=== PATIENT | male | born 1955 | race Hispanic/Latino ===

== ENCOUNTER 2023-06-28 13:32 | Emergency (ER) | payer MEDICARE ==
[~2023-06-28] VITALS: Ht 170.2 cm; Wt 54.4 kg
[2023-06-28 14:09] LABS: BASOPHILS # (AUTO) 0.08 K/uL (0.00-0.20); BASOPHILS % (AUTO) 0.8 % (0.0-5.0); EOSINOPHILS # (AUTO) 0.43 K/uL (0.00-0.70); EOSINOPHILS % (AUTO) 4.5 % (0.0-8.0); HEMATOCRIT 42.3 % (42-54); IMMATURE GRANULOCYTE ABSOLUTE 0.02 K/uL (0-1); LYMPHOCYTES # (AUTO) 2.3 K/uL (1.0-4.8); LYMPHOCYTES % (AUTO) 23.9 % (21.0-51.0); MEAN CORPUSCULAR HEMOGLOBIN 29.6 pg (27.0-33.0); MONOCYTES # (AUTO) 0.7 K/uL (0.1-1.0); MONOCYTES % (AUTO) 7.8 % (3.0-13.0); NEUTROPHILS % (AUTO) 62.8 % (40.0-77.0); PLATELET COUNT (AUTO) 335 K/uL (130-400); RED BLOOD CELL COUNT(AUTO) 4.86 MIL/uL (4.50-6.20); WHITE BLOOD COUNT (AUTO) 9.5 K/uL (4.8-10.8)
[2023-06-28 14:31] LABS: CREATININE 0.6 mg/dL (0.5-1.3)
[2023-06-28 14:35] LABS: ALBUMIN 3.7 g/dL (3.5-5.0); BILIRUBIN,TOTAL 0.4 mg/dL (0.2-1.0); TOTAL PROTEIN, SERUM 7.9 g/dL (6.0-8.3)
[2023-06-28 14:56] LABS: RAPID GROUP A STREP negative (NEGATIVE)
[2023-06-28 15:06] LABS: COVID19 (SARS ANTIGEN RAPID) PRESUMPTIVE NEGATIVE (NEGATIVE)
[2023-06-28] MEDS: LACTATED RINGERS 1000ML 1,000 ML IV ONE (15:29)
[2023-06-28] MEDS: KETOROLAC 30MG VIAL (30MG/ML) IVP ONE (15:29)
[2023-06-28] MEDS ORDERED: ACET-66 PO (17:07)
[2023-06-28 17:23] VITALS: BP 142/76; PULSE 54; RESP 16; O2SAT 98
== END 2023-06-28 17:37 | disposition home or self-care (01) ==
LOC: EDH 13:32
DX: N20.0 Calculus of kidney (principal); Z86.73 Personal history of transient ischemic attack (TIA), and cerebral infarction without residual deficits; Z20.822 Contact with and (suspected) exposure to COVID-19
CPT/HCPCS: 99285; 74176; 96374; 87426; 80053; 85025; 87880; 36415; J7120; J1885

== ENCOUNTER 2023-07-14 12:49 | Emergency (ER) | payer MEDICARE ==
[~2023-07-14] VITALS: Ht 170.2 cm; Wt 59.0 kg
[~2023-07-14 12:49] MED LIST: ACET-66 PO
[2023-07-14 13:18] LABS: RAPID GROUP A STREP negative (NEGATIVE)
[2023-07-14 13:23] LABS: SARS-CoV-2, RNA, NAAT NEGATIVE SARS CoV-2 (NEGATIVE)
[2023-07-14 13:28] LABS: INFLUENZA TYPE A Negative For Type A (NEGATIVE); INFLUENZA TYPE B Negative For Type B (NEGATIVE)
[2023-07-14 13:40] LABS: BASOPHILS # (AUTO) 0.07 K/uL (0.00-0.20); BASOPHILS % (AUTO) 0.7 % (0.0-5.0); EOSINOPHILS # (AUTO) 0.29 K/uL (0.00-0.70); EOSINOPHILS % (AUTO) 2.9 % (0.0-8.0); HEMATOCRIT 41.9 % (42-54); IMMATURE GRANULOCYTE ABSOLUTE 0.03 K/uL (0-1); LYMPHOCYTES # (AUTO) 1.7 K/uL (1.0-4.8); MEAN CORPUSCULAR HEMOGLOBIN 29.7 pg (27.0-33.0); MEAN CORPUSCULAR HGB CONC 33.7 g/dL (32.0-36.0); MEAN CORPUSCULAR VOLUME 88.2 fL (79-99); MONOCYTES # (AUTO) 0.9 K/uL (0.1-1.0); MONOCYTES % (AUTO) 8.5 % (3.0-13.0); NEUTROPHILS % (AUTO) 70.6 % (40.0-77.0); PLATELET COUNT (AUTO) 336 K/uL (130-400); RED BLOOD CELL COUNT(AUTO) 4.75 MIL/uL (4.50-6.20); RED CELL DISTRIBUTION WIDTH 13.7 % (11.0-15.5)
[2023-07-14 13:51] LABS: CREATININE 0.7 mg/dL (0.5-1.3); POTASSIUM 3.8 mmol/L (3.5-5.1)
[2023-07-14 13:56] LABS: ALBUMIN 3.6 g/dL (3.5-5.0); BILIRUBIN,TOTAL 0.8 mg/dL (0.2-1.0); TOTAL PROTEIN, SERUM 7.8 g/dL (6.0-8.3)
[2023-07-14 15:30] LABS: AMYLASE 47 U/L (25-115)
[2023-07-14] MEDS: 0.9%NACL 1000ML 1,000 ML IV SCH (15:51)
[2023-07-14] MEDS: METOCLOPRAMIDE 10 MG/2 ML VIAL IVP ONE (15:51)
[2023-07-14] MEDS: HYDRALAZINE 20MG/ML VIAL IV ONE (15:51)
[2023-07-14] MEDS: KETOROLAC 15MG/ML VIAL (15MG/ML) IV ONE (15:51)
[2023-07-14] MEDS: FAMOTIDINE 20MG VIAL IV ONE (15:51)
[2023-07-14 16:19] VITALS: BP 128/65; PULSE 78; RESP 18; O2SAT 98
[2023-07-14 18:23] LABS: APPEARANCE,URINE CLEAR (CLEAR); BILIRUBIN,URINE NEGATIVE (NEGATIVE); COLOR,URINE YELLOW (YELLOW); GLUCOSE, URINE (UA) NEGATIVE (NEGATIVE); KETONES,URINE NEGATIVE (NEGATIVE); LEUKOCYTE ESTERASE ,URINE NEGATIVE Leu/uL (NEGATIVE); NITRATE,URINE NEGATIVE (NEGATIVE); OCCULT BLOOD,URINE SMALL (NEGATIVE); PH,URINE 6.5 (5.0-8.0); PROTEIN,URINE 50 mg/dL (NEGATIVE)
[2023-07-14 18:29] LABS: ADD UA MICROSCOPIC YES
[2023-07-14 18:32] LABS: BACTERIA,URINE RARE /HPF (None Seen); MUCUS,URINE RARE LPF (None Seen); RBC,URINE 26-50 /HPF (0-1); SQUAMOUS EPITHELIAL CELL,UR RARE /HPF (0-2)
== END 2023-07-14 19:13 | disposition home or self-care (01) ==
LOC: EDH 12:49
DX: N20.0 Calculus of kidney (principal); Z20.822 Contact with and (suspected) exposure to COVID-19; Z98.890 Other specified postprocedural states; Z87.442 Personal history of urinary calculi; Z86.73 Personal history of transient ischemic attack (TIA), and cerebral infarction without residual deficits
CPT/HCPCS: 99284; 96374; 96375 ×2; 87635; 82150; 80053; 83690; 85025; 87088; 87880; 87804 ×2; 81001; 36415; J3490; J7030; J0360; J2765; J1885

== ENCOUNTER 2023-08-22 10:30 | Emergency (ER) | payer MEDICARE, OTHER ==
[~2023-08-22] VITALS: Ht 167.6 cm; Wt 54.4 kg
[2023-08-22 10:54] LABS: HEMATOCRIT 39.3 % (42-54); MEAN CORPUSCULAR HGB CONC 33.1 g/dL (32.0-36.0); MEAN CORPUSCULAR VOLUME 87.5 fL (79-99); PLATELET COUNT (AUTO) 362 K/uL (130-400); RED BLOOD CELL COUNT(AUTO) 4.49 MIL/uL (4.50-6.20); WHITE BLOOD COUNT (AUTO) 9.1 K/uL (4.8-10.8)
[2023-08-22 11:07] LABS: CREATININE 0.7 mg/dL (0.5-1.3); POTASSIUM 3.4 mmol/L (3.5-5.1)
[2023-08-22 11:12] LABS: ALBUMIN 3.6 g/dL (3.5-5.0); BILIRUBIN,DIRECT 0.2 mg/dL (0.0-0.3); BILIRUBIN,TOTAL 0.6 mg/dL (0.2-1.0); TOTAL PROTEIN, SERUM 7.8 g/dL (6.0-8.3)
[2023-08-22 11:29] LABS: B-TYPE NATRIURETIC PEPTIDE 28 pg/mL (0-100)
[2023-08-22 12:16] LABS: EOSINOPHILS % (MANUAL) 4 % (1-6); LYMPHOCYTES % (MANUAL) 14 % (22-44); MAN.DIFF COMMENT-IMPRESSION MANUAL DIFFERENTIAL; MONOCYTES % (MANUAL) 10 % (2-9); PLATELET MORPHOLOGY COMMENT ADEQUATE; SEGMENTED NEUTROPHILS % 72 % (40-70); TOTAL CELLS COUNTED 100
[2023-08-22] MEDS: CEFTRIAXONE 1G VIAL IVPB ONE (12:35)
[2023-08-22 12:49] VITALS: PULSE 62; RESP 18
[2023-08-22] MEDS: ALBUTEROL 0.083% 2.5 MG/3 ML INH IH ONE (12:49)
[2023-08-22 13:30] LABS: COVID19 (SARS ANTIGEN RAPID) PRESUMPTIVE NEGATIVE (NEGATIVE)
[2023-08-22 13:35] LABS: INFLUENZA TYPE A NEGATIVE FOR TYPE A (NEG)
[2023-08-22 13:36] LABS: INFLUENZA TYPE B NEGATIVE FOR TYPE B (NEG)
[2023-08-22] MEDS ORDERED: PRED20TA3 PO (16:24)
[2023-08-22] MEDS ORDERED: AZIT250T9 PO (16:24)
[2023-08-22 17:02] VITALS: BP 131/73; PULSE 54; RESP 18; O2SAT 99
== END 2023-08-22 17:03 | disposition home or self-care (01) ==
LOC: EDH 10:30
DX: J20.9 Acute bronchitis, unspecified (principal); J06.9 Acute upper respiratory infection, unspecified; Z87.442 Personal history of urinary calculi
CPT/HCPCS: 99285; 96365; 71045; 87426; 80076; 84484; 80048; 83880; 85025; 87804 ×2; 36415; 93005; 94640; J0696

== ENCOUNTER 2023-11-16 12:09 | Observation (INO) | payer OTHER ==
[~2023-11-16] VITALS: Ht 170.2 cm; Wt 43.1 kg
[~2023-11-16 12:09] MED LIST changes: +AZIT250T9 PO; +PRED20TA3 PO
[2023-11-16] MEDS: SOLU-MEDROL 125MG VIAL IVP ONE (12:23)
[2023-11-16 12:25] VITALS: PULSE 71; RESP 20
[2023-11-16 12:25] LABS: BASOPHILS # (AUTO) 0.01 K/uL (0.00-0.20); BASOPHILS % (AUTO) 0.1 % (0.0-5.0); EOSINOPHILS # (AUTO) 0.18 K/uL (0.00-0.70); EOSINOPHILS % (AUTO) 1.5 % (0.0-8.0); HEMATOCRIT 45.3 % (42-54); IMMATURE GRANULOCYTE ABSOLUTE 0.06 K/uL (0-1); LYMPHOCYTES # (AUTO) 2.4 K/uL (1.0-4.8); LYMPHOCYTES % (AUTO) 20.3 % (21.0-51.0); MEAN CORPUSCULAR HGB CONC 32.5 g/dL (32.0-36.0); MEAN CORPUSCULAR VOLUME 89.3 fL (79-99); MONOCYTES # (AUTO) 1.4 K/uL (0.1-1.0); MONOCYTES % (AUTO) 11.5 % (3.0-13.0); NEUTROPHILS % (AUTO) 66.1 % (40.0-77.0); PLATELET COUNT (AUTO) 398 K/uL (130-400); RED BLOOD CELL COUNT(AUTO) 5.07 MIL/uL (4.50-6.20)
[2023-11-16] MEDS: ALBUTEROL 0.083% 2.5 MG/3 ML INH IH ONE (12:25)
[2023-11-16 12:38] LABS: CREATININE 0.6 mg/dL (0.5-1.3); POTASSIUM 3.7 mmol/L (3.5-5.1)
[2023-11-16 12:42] LABS: ALBUMIN 3.1 g/dL (3.5-5.0); BILIRUBIN,TOTAL 0.7 mg/dL (0.2-1.0); MAGNESIUM 2.1 mg/dL (1.80-2.40); TOTAL PROTEIN, SERUM 7.3 g/dL (6.0-8.3)
[2023-11-16 12:57] LABS: ABG BASE EXCESS 1.4 mmol/L (-2.0-3.0); ABG HCO3 24.7 mmol/L (21.0-28.0); ABG OXYGEN SATURATION 97.3 % (95.0-99.0); ABG PCO2 36 mmHg (35-48); ABG PH 7.461 (7.35-7.450); VENT MODE, BG RA (ROOM AIR)
[2023-11-16 13:28] LABS: B-TYPE NATRIURETIC PEPTIDE 1230 pg/mL (0-100)
[2023-11-16] MEDS ORDERED: FAMO20TA8 PO (14:00)
[2023-11-16] MEDS ORDERED: AMLO-257 PO (14:00)
[2023-11-16] MEDS ORDERED: TAMS-1 PO (14:00)
[2023-11-16] MEDS ORDERED: ROSU20TA73 PO (14:01)
[2023-11-16] MEDS: FUROSEMIDE 20MG VIAL IV ONE (14:51)
[2023-11-16] MEDS: cefTRIAXone 1G VIAL IVPB ONE (14:52)
[2023-11-16] MEDS ORDERED: IpraTROPium/alBUTERol SULFATE 3 ML SOLUTION IH PRN (15:00)
[2023-11-16] MEDS: AZITHROMYCIN 500MG+NS 250ML 250 ML IVPB STA (15:11)
[2023-11-16 15:28] LABS: BASOPHILS # (AUTO) 0.01 K/uL (0.00-0.20); BASOPHILS % (AUTO) 0.1 % (0.0-5.0); EOSINOPHILS # (AUTO) 0.02 K/uL (0.00-0.70); EOSINOPHILS % (AUTO) 0.2 % (0.0-8.0); IMMATURE GRANULOCYTE ABSOLUTE 0.06 K/uL (0-1); LYMPHOCYTES # (AUTO) 0.6 K/uL (1.0-4.8); LYMPHOCYTES % (AUTO) 4.9 % (21.0-51.0); MEAN CORPUSCULAR HEMOGLOBIN 29.1 pg (27.0-33.0); MEAN CORPUSCULAR HGB CONC 32.9 g/dL (32.0-36.0); MEAN CORPUSCULAR VOLUME 88.6 fL (79-99); MONOCYTES # (AUTO) 0.2 K/uL (0.1-1.0); MONOCYTES % (AUTO) 1.8 % (3.0-13.0); NEUTROPHILS # (AUTO) 11.8 K/uL (1.8-7.7); NEUTROPHILS % (AUTO) 92.5 % (40.0-77.0); PLATELET COUNT (AUTO) 391 K/uL (130-400); RED BLOOD CELL COUNT(AUTO) 5.08 MIL/uL (4.50-6.20); RED CELL DISTRIBUTION WIDTH 15.9 % (11.0-15.5); WHITE BLOOD COUNT (AUTO) 12.7 K/uL (4.8-10.8)
[2023-11-16 15:41] LABS: CREATININE 0.6 mg/dL (0.5-1.3); POTASSIUM 3.6 mmol/L (3.5-5.1)
[2023-11-16 15:46] LABS: ALBUMIN 3.2 g/dL (3.5-5.0); BILIRUBIN,TOTAL 0.7 mg/dL (0.2-1.0); TOTAL PROTEIN, SERUM 7.6 g/dL (6.0-8.3)
[2023-11-16] MEDS: acetaMINOPHEN 325 MG TAB PO PRN (18:22)
[2023-11-16 18:55] VITALS: PULSE 91; RESP 18
[2023-11-16] MEDS: IpraTROPium/alBUTERol SULFATE 3 ML SOLUTION IH SCH (18:55)
[2023-11-17] VITALS (17 sets, daily range): BP systolic 114–148; BP diastolic 58–86; PULSE 56–97; RESP 18–21; O2SAT 97–99
[2023-11-17] MEDS: amLODIPine 5 MG TAB PO SCH (09:42)
[2023-11-17] MEDS: TAMSULOSIN HCL 0.4 MG CAP.ER.24H PO SCH (09:42)
[2023-11-17] MEDS: FAMOTIDINE 20MG TAB PO SCH (09:42)
[2023-11-17] MEDS: HYDROMORPHONE 0.5 MG SYG (0.5MG/0.5ML) IVP PRN (09:43)
[2023-11-17] MEDS: cefTRIAXone 1G VIAL IVPB SCH (15:30)
[2023-11-17] MEDS: SOLU-MEDROL 125MG VIAL IVP SCH (20:44)
[2023-11-18] VITALS (7 sets, daily range): BP systolic 127–148; BP diastolic 68–98; PULSE 66–94; RESP 17–24; O2SAT 96–99
== END 2023-11-18 11:30 | disposition home or self-care (01) ==
LOC: EDH 12:09 → EDHIP 14:38 → OBSVTOIN 14:38 → INTOOBSV 14:38 → EDHIP 19:40 → 4DH 23:54
PROVIDERS: ADMIT Internal Medicine; ATTEND Internal Medicine
DX: I11.0 Hypertensive heart disease with heart failure (principal); I50.9 Heart failure, unspecified; J44.1 Chronic obstructive pulmonary disease with (acute) exacerbation; E78.00 Pure hypercholesterolemia, unspecified; N40.0 Benign prostatic hyperplasia without lower urinary tract symptoms; Z86.73 Personal history of transient ischemic attack (TIA), and cerebral infarction without residual deficits; Z93.0 Tracheostomy status; Z79.899 Other long term (current) drug therapy; Z98.890 Other specified postprocedural states; Z20.822 Contact with and (suspected) exposure to COVID-19
CPT/HCPCS: 99285; 96365; 96375 ×2; 71045; 87426; 96368; 83735; 84484; 82803; 83880; 85025 ×2; 87040; 87086; 87186; 87205; 82948; 83605; 36415; 93005; 36600; 94664; 87071; 93306; 96376 ×2; 80053 ×2; J2919 ×3; J0696 ×2; J0456; J1940; J1170; G0378; 94640

== ENCOUNTER 2023-11-22 17:59 | Emergency (ER) | payer OTHER ==
[~2023-11-22] VITALS: Ht 165.1 cm; Wt 54.4 kg
[~2023-11-22 17:59] MED LIST changes: -ACET-66 PO; +AMLO-257 PO; -AZIT250T9 PO; +FAMO20TA8 PO; -PRED20TA3 PO; +ROSU20TA73 PO; +TAMS-1 PO
[2023-11-22 18:01] VITALS: BP 142/55; PULSE 51; RESP 22
== END 2023-11-22 19:44 | disposition left against medical advice (07) ==
LOC: EDH 17:59
DX: R06.02 Shortness of breath (principal); K52.9 Noninfective gastroenteritis and colitis, unspecified; E78.00 Pure hypercholesterolemia, unspecified; Z53.21 Procedure and treatment not carried out due to patient leaving prior to being seen by health care provider; Z79.899 Other long term (current) drug therapy
CPT/HCPCS: 99281